=== PATIENT | male | born 1980 | race Caucasian/White ===

== ENCOUNTER 2016-08-24 04:18 | Emergency (ER) | payer BC ==
[2016-08-24] MEDS ORDERED: Dexamethasone/Tobramycin 0.1-0.3% Ophth Susp 2.5 ML Bottle EYEBOTH STA (04:32)
[2016-08-24 04:33] VITALS: BP 146/81
--- NOTE | 2016-08-24 04:39 | EDM.PDOC ---
ED HPI EYE COMPLAINT - General Chief Complaint: Eye Problems Stated Complaint: VISION PROBLEMS Time Seen by Provider: 08/24/16 04:33 Source: Reports: Patient - History of Present Illness INITIAL COMMENTS - FREE TEXT/NARRATIVE: 36-year-old male presents with eye irritation after leaving his contact lenses in for over 24 hours, he did remove contact lenses eyes are red and irritated is injected sclera, no foreign body, symptoms present both eyes for 2 days No fever nausea vomiting chills sweats no chest pain shortness breath headache dizziness palpitation about a urine symptoms no light sensitivity Vitals stable afebrile HEENT NCAT PERRLA EOMI nares patent oropharynx clear neck supple no meningeal sign, sclerae injected bilateral no foreign body sensation contacts removed Chest clear throughout no wheeze or crackle CV regular in rhythm Abdomen soft nontender nondistended bowel sounds all 4 quadrants Extremities full range of motion strength 5 out of 5 no edema ASL INTERPRETER alert nonfocal Assessment Conjunctivitis Plan TobraDex 2 drops q4 5 days No contact lenses for one week Return if symptoms persist worsen Followup with primary care in 2 weeks - Related Data Allergies/ADRs: Allergies shellfish derived Allergy (Verified 08/24/16 04:31) Anaphylactic Shock Home Meds: Ambulatory Orders Medication Instructions Recorded Confirmed . [No Known Home Meds] 08/04/14 08/04/14 Social & Family History - Tobacco Use Smoking Status *Q: Current Every Day Smoker Years of Tobacco use: 10 Used Tobacco, but Quit: No Second Hand Smoke Exposure: Yes - Alcohol Use Days Per Week of Alcohol Use: 1 Number of Drinks Per Day: 2 Total Drinks Per Week: 2 - Recreational Drug Use Recreational Drug Use: No ED ROS GENERAL - Review of Systems Review Of Systems: ROS reveals no pertinent complaints other than HPI. ED EXAM GENERAL W FULL EYE - Physical Exam Exam: See Below Course - Vital Signs Last Recorded V/S: Last Vital Signs Temp 37.0 C 08/24/16 04:31 Pulse 78 08/24/16 04:31 Resp 20 08/24/16 04:31 BP 146/81 H 08/24/16 04:31 Pulse Ox 95 08/24/16 04:31 - Orders/Labs/Meds Orders: Active Orders 24 hr Category Date Time Status Dexamethasone/Tobramycin [Tobradex Ophth Susp] Med 08/24/16 04:32 Stat 2 ml EYEBOTH NOW STA Departure - Departure Time of Disposition: 04:39 Disposition: Home, Self-Care 01 Condition: good Clinical Impression: Conjunctivitis Forms: ED Department Discharge Additional Instructions: TobraDex every 4 hours for 5 days No contact lenses for 5 days Return if symptoms persist or worsen Followup with primary care in 2 weeks - My Orders Last 24 Hours: My Active Orders 08/24/16 04:32 Dexamethasone/Tobramycin [Tobradex Ophth Susp] 2 ml EYEBOTH NOW STA - Assessment/Plan Last 24 Hours: My Active Orders 08/24/16 04:32 Dexamethasone/Tobramycin [Tobradex Ophth Susp] 2 ml EYEBOTH NOW STA
[2016-08-24] MEDS ORDERED: Proparacaine 0.5% Ophth Soln 15 ML Bottle EYEBOTH STA (04:43)
[2016-08-24] MEDS ORDERED: Proparacaine 0.5% Ophth Soln 15 ML Bottle ONE (04:44)
== END 2016-08-24 04:57 | disposition home or self-care (01) ==
LOC: MW.ED 04:18
DX: H10.9 Unspecified conjunctivitis (principal); F17.210 Nicotine dependence, cigarettes, uncomplicated
CPT/HCPCS: 99282; A9270; 99283

== ENCOUNTER 2017-08-02 07:44 | Day surgery (SDC) | payer BC, OTHER ==
[~2017-08-02 07:44] MED LIST: Bupivacaine 25%/EPINEPHrine/PF 30 ML ONE; Lidocaine 2% 5 ML SDV ONE; Midazolam 1 MG/ML 2 ML SDV ONE; Propofol 200 MG/20 ML SDV ONE; ceFAZolin/Dextrose,Iso-Osmotic 2 GM/50 ML Duplex Bag IV ONE; fentaNYL 100 MCG/2 ML SDV ONE
[2017-08-02] MEDS ORDERED: ceFAZolin 2 GM in Premix Bag 1 BAG IV ONE (08:00)
[2017-08-02] MEDS ORDERED: Lactated Ringers 1,000 ML IV SCH (08:00)
[2017-08-02] MEDS ORDERED: Bupivacaine 0.25%/EPINEPHrine 1:200,000 10 ML SDV INJECT ONE (08:00)
[2017-08-02] MEDS ORDERED: Acetaminophen/HYDROcodone 325-5 MG Tab PO PRN (08:00)
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
[2017-08-02] MEDS ORDERED: diphenhydrAMINE 50 MG/ML SDV ONE (08:53)
--- NOTE | 2017-08-02 09:36 | PCM48HPAN ---
Post Anesthesia Note - EVALUATION WITHIN 48HRS OF ANESTHETIC Vital Signs in Normal Range: Yes Patient Participated in Evaluation: Yes Respiratory Function Stable: Yes Airway Patent: Yes Cardiovascular Function Stable: Yes Hydration Status Stable: Yes Pain Control Satisfactory: Yes Nausea and Vomiting Control Satisfactory: Yes Mental Status Recovered: Yes Resp Rate: 11 - COMMENTS/OBSERVATIONS Free Text/Narrative:: no anesthesia problems
[2017-08-02 09:52] VITALS: BP 136/89
--- NOTE | 2017-08-02 13:59 | PCM.OPNOTE ---
- General Post-Op/Procedure Note Date of Surgery/Procedure: 08/02/17 Operative Procedure(s): right carpal tunnel release Pre Op Diagnosis: right carpal tunnel syndrome Post-Op Diagnosis: Same Anesthesia Technique: Local, MAC Primary Surgeon: Meghann Rose Electric Accounting Machine Operator: Iliana Oglesby Role of Electric Accounting Machine Operator: retraction, prepping, draping and closure assistance. Complications: None Condition: Good Free Text/Narrative:: Intake & Output 08/01/17 08/02/17 08/02/17 23:59 07:59 15:59 Intake Total 700 Balance 700
--- NOTE | 2017-08-02 16:19 | OR ---
SURGEON: HEBER MONGE MD DATE OF PROCEDURE: 08/02/2017 PREOPERATIVE DIAGNOSIS: Right carpal tunnel syndrome. POSTOPERATIVE DIAGNOSIS: Right carpal tunnel syndrome. PROCEDURE: Right carpal tunnel release. LAND COMMISSIONER: TAQUERIA Lawrence. REASON LAND COMMISSIONER WAS NECESSARY: Retraction, prepping, draping, and closure assistance. ANESTHESIA: Local MAC. INDICATIONS: Mr. Nair is a 37-year-old gentleman who has failed conservative management of his carpal tunnel syndrome. Risks and benefits of release were discussed with him and he is in agreement to proceed. Risks were including, but not limited to, bleeding, infection, damage to underlying or overlying structures, possible need for future interventions, and possible scarring. PROCEDURE IN DETAIL: After informed consent was obtained and placed on the chart, the patient was brought to the operating theater and laid in supine position. After adequate local MAC anesthesia was obtained, the area was prepped and draped, a time-out was completed to confirm side and site. The arm was then exsanguinated and 0.25% Marcaine with epinephrine was injected in a median nerve block. Once adequate anesthesia was obtained, a 15 blade was used to dissect through skin and subcutaneous tissues until breach to the transverse carpal ligament. Once adequately breached, dissection was then carried distally and proximally under direct visualization until complete release of ligament. Once adequately released, the area was irrigated and the skin was closed using 5-0 nylon stitch in a horizontal mattress fashion. The wound was dressed with Xeroform, fluffs, and a Kerlix gauze dressing and a 2- inch Alex wrap. The patient tolerated the procedure well. All counts and needles were correct at the end of the case. FOLLOWUP INSTRUCTIONS: The patient will see us in clinic in 10 to 14 days, sooner if any problems, questions, or concerns. He was given a prescription for pain control. HEGGTHE / MODL /[id number]
== END 2017-08-02 09:49 | disposition home or self-care (01) ==
LOC: MW.SDS 07:44
PROVIDERS: ATTEND Plastic Surgery
DX: G56.03 Carpal tunnel syndrome, bilateral upper limbs (principal); E66.9 Obesity, unspecified; F17.210 Nicotine dependence, cigarettes, uncomplicated; F43.10 Post-traumatic stress disorder, unspecified; Z91.013 Allergy to seafood; Z68.31 Body mass index [BMI] 31.0-31.9, adult
CPT/HCPCS: 64721; J0690; J1200; J2250; J3010; J7120; J2704

== ENCOUNTER 2021-05-11 19:03 | Emergency (ER) | payer OTHER ==
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
[2021-05-11] MEDS ORDERED: Ketorolac 30 MG/ML SDV IVPUSH ONE (19:19)
[2021-05-11] MEDS ORDERED: Sodium Chloride 0.9% 1,000 ML IV ONE (19:19)
[2021-05-11 20:23] LABS: BLOOD UREA NITROGEN,BUN 15 mg/dL (7.0-18.0); CARBON DIOXIDE,CO2 29.9 mmol/L (21.0-32.0); CHLORIDE,CL 99 mmol/L (98-107); GLUCOSE RANDOM 113 mg/dL (74-106); SODIUM,NA 135 mmol/L (136-148)
[2021-05-11 20:24] LABS: CORONAVIRUS COVID-19 NAA POSITIVE (NEGATIVE); INFLUENZA A NAA NEGATIVE (NEGATIVE); INFLUENZA B NAA NEGATIVE (NEGATIVE)
[2021-05-11 21:37] VITALS: BP 116/59; PULSE 81
== END 2021-05-11 21:37 | disposition home or self-care (01) ==
LOC: MW.ED 19:03
DX: U07.1 COVID-19 (principal); E66.9 Obesity, unspecified; Z68.28 Body mass index [BMI] 28.0-28.9, adult; Z91.013 Allergy to seafood
CPT/HCPCS: 0240U; 36415; 80053; 81003; 82550; 85025; 96374; 99284; J1885; J7030

== ENCOUNTER 2021-09-27 12:08 | Emergency (ER) | payer SELFPAY ==
[2021-09-27] MEDS ORDERED: Acetaminophen/HYDROcodone 325-5 MG Tab PO ONE (12:52)
[2021-09-27] MEDS ORDERED: Ketorolac 60 MG/2 ML SDV IM ONE (14:22)
[2021-09-27] MEDS ORDERED: Lidocaine 1% PF 2 ML SDV INJECT ONE (14:43)
[2021-09-27 15:02] VITALS: BP 106/57; PULSE 60
== END 2021-09-27 15:01 | disposition home or self-care (01) ==
LOC: MW.ED 12:08
DX: M54.50 Low back pain, unspecified (principal); M54.6 Pain in thoracic spine; E66.9 Obesity, unspecified; Z68.28 Body mass index [BMI] 28.0-28.9, adult; Z91.013 Allergy to seafood
CPT/HCPCS: 72128; 72128-26; 72131-26; 74176; 74176-26; 81003; 96372; 99283; 99284-25; A9270-GY; J1885

== ENCOUNTER 2022-08-01 18:21 | Emergency (ER) | payer SELFPAY ==
[2022-08-01 18:33] VITALS: BP 121/73; PULSE 85
[2022-08-01] MEDS ORDERED: Sodium Chloride 0.9% 1,000 ML IV ONE (18:36)
== END 2022-08-01 18:45 | disposition left against medical advice (07) ==
LOC: MW.ED 18:21
DX: Z53.21 Procedure and treatment not carried out due to patient leaving prior to being seen by health care provider (principal)
CPT/HCPCS: 82947